=== PATIENT | female | born 1950 | race Caucasian/White ===

== ENCOUNTER 2025-03-29 20:34 | Emergency (ER) | payer MEDICARE, OTHER, SELFPAY ==
[2025-03-29 20:38] VITALS: BP 120/73
[2025-03-29 21:11] LABS: Hematocrit 37.3 % (37.0-47.0); Hemoglobin 12.4 g/dL (12.0-16.0); Mean Corp Hgb Conc. 33.2 g/dL (33.0-37.0); Mean Corpuscular Volume 92.1 fL (81.0-99.0); Nucleated Red Blood Cells % 0 %; Platelet Count 153 10^3/uL (130-400); Red Cell Dist. Width 12.6 % (11.5-14.5)
[2025-03-29 21:34] LABS: ALT (SGPT) 17 U/L (0-35); AST (SGOT) 25 U/L (14-36); Albumin 4.4 g/dl (3.5-5.0); Alkaline Phosphatase 67 U/L (38-126); Blood Urea Nitrogen 27 mg/dl (7-17); Calcium 9.3 mg/dl (8.4-10.2); Carbon Dioxide 29 mmol/L (22-30); Chloride 105 mmol/L (98-107); Glucose 74 mg/dl (70-99); Potassium 4.3 mmol/L (3.5-5.1); Sodium 138 mmol/L (135-145); Total Protein 6.7 g/dl (6.3-8.2); eGFR 47.80
[2025-03-29 21:45] LABS: Troponin I < 0.012 ng/ml
[2025-03-29 22:01] VITALS: BP 141/87
[2025-03-29 22:05] VITALS: BMI 24.1
[2025-03-29 23:00] VITALS: BP 138/79
[2025-03-29 23:42] LABS: D-Dimer 0.35 ug/mlFEU (0.00-0.50)
--- NOTE | 2025-03-30 01:00 | ED.GENMED ---
History of Present Illness
General
Chief Complaint: Chest Problem
Source: patient
Exam Limitations: none
Time Seen by Provider: 03/29/25 22:18
History of Present Illness
History of Present Illness:
Note:
CHIEF COMPLAINT(S)
Left-sided pain exacerbated by weight training activities.
HISTORY OF PRESENT ILLNESS
The patient is a 75-year-old female presenting with left-sided pain experienced during weight training activities in a pool setting. She describes it as a pressure-like sensation that occurs solely during these exercises. Regular walking and other
arm exercises do not provoke the pain. She reports no shortness of breath or pain on exertion like climbing stairs. Upon physical examination, palpation and movement did not reproduce significant pain. According to the patient, her discomfort begins
at a specific spot and involves soreness in that region.
PAST MEDICAL AND SURIGICAL HISTORY
The patient has a history of chronic hepatitis, cryoglobulinemic vasculitis, and psoriasis. She takes medication for hypertension and supplements with calcium and vitamin D. She has undergone previous surgeries, which include a minor
infection-related procedure and a cholecystectomy.
CHRONIC MEDICAL CONDITIONS SIGNIFICANTLY AFFECTING CARE
- Chronic Hepatitis
- Cryoglobulinemic vasculitis
- Psoriasis
SOCIAL HISTORY
The patient did not provide specific details related to social habits in the current encounter.
MEDICATIONS
Current medications include antihypertensive medication and calcium plus vitamin D supplementation.
REVIEW OF SYSTEMS
- Musculoskeletal: Pain in the left side during weight training in water. No additional joint or muscular pain reported.
- Respiratory: No shortness of breath experienced, including during episodes of pain.
PHYSICAL EXAM
General: Alert, no acute distress.
Skin: Warm, dry.
Head: Normocephalic, atraumatic.
Neck: Supple, trachea midline.
Eye, ears, nose, mouth and throat: Oral mucosa moist.
Cardiovascular: Normal peripheral perfusion, no edema.
Respiratory: Respirations are non-labored.
Gastrointestinal: Abdomen is nondistended.
Back: Normal range of motion, normal alignment.
Musculoskeletal: Normal range of motion, normal strength, localized soreness in a specific area on the left side.
Neurological: Alert and oriented to person, place, time, and situation, no focal neurological deficit observed.
Psychiatric: Cooperative, appropriate mood, and affect.
PROBLEM LIST
Acute Problems:
- Left-sided pain during weight training
Chronic Problems:
- Chronic hepatitis
- Cryoglobulinemic vasculitis
- Psoriasis
PLAN
The plan includes conducting a blood test to assess for potential blood clots. If results indicate abnormalities, a computed tomography scan of the chest will be ordered; otherwise, a chest x-ray will follow if blood tests return normal. This course
of action is intended to rule out cardiac concerns due to previously noted T wave inversions on an electrocardiogram, although these inversions are not currently a cause for alarm.
DIFFERENTIAL DIAGNOSIS
The Differential Diagnosis includes, in no particular order and is not limited to:
- Musculoskeletal strain or injury
- Angina pectoris
- Costochondritis
- Pulmonary embolism
- Gastroesophageal reflux disease
- Pleural effusion
- Herpes zoster
- Myofascial pain syndrome
- Bursitis
- Chronic obstructive pulmonary disease (COPD) related pain
Disposition:
SUMMARY OF ENCOUNTER
The patient is a 75-year-old female who presented with left-arm pain that occurs during exercise and movement of the left arm. The pain does not present at rest. Laboratory work was performed, and initial tests including D-Dimer and troponin were
negative. A trial of muscle relaxants and ibuprofen (Motrin) will be initiated, with instructions to follow up as needed. An X-ray was conducted and showed no abnormalities.
ASSESSMENT
The pain is musculoskeletal in nature, possibly due to strain or injury from exercise.
PLAN
The plan includes initiating a trial of muscle relaxants and Motrin (ibuprofen), with the patient instructed to follow up as necessary.
INDEPENDENT REVIEW OF LABS AND INTERPRETATION OF TESTS
My independent review of the lab results indicates negative findings for D-Dimer and troponin, ruling out certain cardiac or thrombotic concerns.
MEDICATION RECONCILIATION
The patient will trial muscle relaxants and Motrin (ibuprofen).
MEDICAL DECISION MAKING
- Number and Complexity of Problems Addressed: Chronic conditions affecting care [Chronic hepatitis, cryoglobulinemic vasculitis, psoriasis]. Differential diagnoses considered include musculoskeletal strain or injury, angina pectoris,
costochondritis, and more.
- Data:
Category 1: The lab tests ordered and reviewed include D-Dimer and troponin.
- Risk: Prescription medication was prescribed.
DIAGNOSIS
- Musculoskeletal pain, likely due to exercise-induced strain (ICD-10: M79.1)
Phy Exam
Physical Exam
Physical Exam:
.
Course
Orders/Labs/Results
Orders:
Orders
03/29/25 20:38
Electrocardiogram (*1) Urgent
Reason for Study: Chest Pain
EKG- Treatment ONCE
03/29/25 21:02
Complete Blood Count/With Diff Urgent
Comprehensive Metabolic Panel Urgent
Troponin I Urgent
03/29/25 23:22
D-Dimer Urgent
03/30/25 00:33
CR Chest - 2 Views Urgent
Comment:
Reason For Exam: chest pain
03/30/25 01:04
Diazepam [Valium] 2 mg PO NOW STA
Abnormal Lab Results
03/29/25
21:02
RBC 4.05 L 10^6/uL
(4.20-5.40)
MPV 11.5 H fL
(7.4-10.4)
Absolute Monos (auto) 0.7 H 10^3/uL
(0.1-0.6)
Monocytes % 9.4 H %
(1.7-9.3)
BUN 27 H mg/dl
(7-17)
Creatinine 1.2 H mg/dL
(0.6-1.0)
03/29/25 21:02
03/29/25 21:02
Vital Signs
Initial and Last Documented VS:
Initial Vital Signs
Temp Pulse Resp BP Pulse Ox
97.5 F 69 16 120/73 99
03/29/25 20:38 03/29/25 20:38 03/29/25 20:38 03/29/25 20:38 03/29/25 20:38
Last Documented Vital Signs
Temp Pulse Resp BP Pulse Ox
97.5 F 72 33 138/79 99
03/29/25 20:38 03/30/25 00:30 03/30/25 00:30 03/29/25 23:00 03/30/25 01:01
*Pulse Oximetry
SaO2: 99
Oxygen Mode of Delivery: Room air
Patient hypoxic: no
*Critical Care Note
Total Time (30-74mins, 75-104mins- exclusive of procedures): Not Applicable
ED Attending Note
-
Portions of this chart may have been created with voice recognition software.� Occasional wrong word or��sound alike� substitutions may have occurred due to the inherent limitations of voice recognition software.
Discharge Plan
Departure
Patient Disposition: Home (Routine Discharge)
Date of Disposition: 03/30/25
Time of Disposition: 01:04
Patient with high blood pressure during this ER visit?: Yes
Condition: Good
Discharge Problem:
Muscle spasm, Chest pain
Instructions: Chest Pain (DC), Upper back pain, BLOOD PRESSURE
Prescriptions:
New
diazepam [Valium] 2 mg tablet
2 mg PO BID PRN (Reason: muscle spasm) Qty: 10 0RF
Referrals:
Gayatri Ariza MD [Family Provider, Family Practice]
Activity Restrictions/Additional Instructions:
Your prescriptions were sent electronically to the pharmacy that you specified.
Thank You for choosing [facility].
It was a pleasure meeting you and taking part in your care. We hope for your continued healing and wellness.
Please read discharge instructions in their entirety. However, they are for general education and may not describe your exact diagnosis at discharge. Information on your ER visit and medical conditions were discussed with you along with appropriate
follow up information...
If indicated, please take your medications as instructed and indicated on discharge paperwork.
Please schedule a follow up appointment as directed. Call to schedule an appointment
Please return to the emergency department with ANY change in, persisting, or worsening of symptoms. If any of your symptoms do not improve, or persist, or become more severe within 6-12 hours, please return to the emergency department for further
care.
Please return to the emergency department if you develop a headache, neck pain/stiffness, fever greater than 100.4F, chest pain, shortness of breath, persistent nausea, vomiting, slurred speech, difficulty walking, numbness/tingling, weakness, signs
of infection or any other symptoms that are worrisome to you.
If you have any questions or concerns please do not hesitate to call the Hospital at or E-mail me directly at [email or web address]
Interventions
Interventions:
*Risk Screen - Suicide Last Done: 03/29/25 20:38
*General Assessment Last Done: 03/29/25 20:38
*Neglect/Abuse Screening Last Done: 03/29/25 20:38
*ED- Fall Risk Assessment Last Done: 03/29/25 22:06
*ED COVID-19 Vaccine History Last Done: 03/29/25 22:06
*Nursing Disposition Last Done: 03/30/25 01:27
ED- Cardiac Assessment Last Done: 03/29/25 22:06
ED- Pulmonary Assessment Last Done: 03/29/25 22:06
Discharge Date and Time
Discharge Date/Time: 03/30/25 01:31
Print Language: OMANI
== END 2025-03-30 01:31 | disposition home or self-care (01) ==
LOC: EMR 20:34
PROVIDERS: Emergency Medicine; EMERGENCY PHYSICIAN Student in an Organized Health Care Education/Training Program; FAMILY PHYSICIAN Family Medicine
DX: M62.838 Other muscle spasm (principal); R07.89 Other chest pain; K73.9 Chronic hepatitis, unspecified; D89.1 Cryoglobulinemia; L40.9 Psoriasis, unspecified; I10 Essential (primary) hypertension; Z90.49 Acquired absence of other specified parts of digestive tract
CPT/HCPCS: 99284; 71046; 80053; 84484; 85025; 85379; 93005